=== PATIENT | male | born 1950 | race Caucasian/White ===

== ENCOUNTER 2019-01-28 09:50 | Emergency (ER) | payer MEDICARE, MEDICAID ==
[~2019-01-28 09:50] MED LIST: SULF1TAB12 PO
== END 2019-01-28 10:45 | disposition home or self-care (01) ==
LOC: MED 09:50
DX: K74.60 Unspecified cirrhosis of liver (principal); Z76.0 Encounter for issue of repeat prescription
CPT/HCPCS: 99283

== ENCOUNTER 2019-02-08 13:29 | Emergency (ER) | payer MEDICARE, MEDICAID ==
[~2019-02-08] VITALS: Ht 182.9 cm; Wt 116.1 kg
[2019-02-08 13:49] VITALS: BP 164/75
--- NOTE | 2019-02-08 13:52 | NUR ---
Patient ambulated to bed 3. RN evaluating patient at bedside.
--- NOTE | 2019-02-08 14:20 | NUR ---
68/M BIB SELF C/O INTERMITTENT NECK PAIN X 1 MONTH. DENIES TRAUMA. PATIENT STATES PAIN OF 10/10 AT THIS TIME.
[2019-02-08] MEDS ORDERED: ACETAMINOPHEN EXTRA STRENGTH 500 MG TAB PO ONE (15:05)
--- NOTE | 2019-02-08 15:06 | NUR ---
PT TAKEN TO CT VIA W/C, ACCOMPANIED BY QUALITY CONTROL AUDITOR.
[2019-02-08 16:01] VITALS: BP 136/69
--- NOTE | 2019-02-08 16:01 | NUR ---
Patient discharged with v/s stable. Written and verbal after care instructions given and explained. Patient alert, oriented and verbalized understanding of instructions. Ambulatory with steady gait. All questions addressed prior to discharge. ID band removed. Patient advised to follow up with PMD. Rx of ACETAMINOPHEN & NAPROSYN given. Patient educated on indication of medication including possible reaction and side effects. Opportunity to ask questions provided and answered.
== END 2019-02-08 16:01 | disposition home or self-care (01) ==
LOC: MED 13:29
DX: M47.892 Other spondylosis, cervical region (principal); R60.0 Localized edema; I10 Essential (primary) hypertension; F17.209 Nicotine dependence, unspecified, with unspecified nicotine-induced disorders; Z86.718 Personal history of other venous thrombosis and embolism; Z79.899 Other long term (current) drug therapy; Z71.6 Tobacco abuse counseling
CPT/HCPCS: 72125; 99284

== ENCOUNTER 2019-02-24 20:22 | Emergency (ER) | payer MEDICARE, MEDICAID ==
[~2019-02-24] VITALS: Ht 188 cm; Wt 113.4 kg
[2019-02-24 20:45] VITALS: BP 171/74
--- NOTE | 2019-02-24 21:20 | NUR ---
PATIENT REFUSING MY ASSESSMENT AT THIS TIME. NOT ANSWERING QUESTIONS
--- NOTE | 2019-02-24 21:30 | NUR ---
Dr. Macias examining patient.
--- NOTE | 2019-02-24 21:43 | NUR ---
EKG PERFORMED AT BEDSIDE
--- NOTE | 2019-02-24 21:55 | NUR ---
PATIENT REFUESING CARE AT THIS TIME. ELOPED FOR ER.
== END 2019-02-24 21:55 | disposition left against medical advice (07) ==
LOC: MED 20:22
DX: M25.562 Pain in left knee (principal); Z53.21 Procedure and treatment not carried out due to patient leaving prior to being seen by health care provider
CPT/HCPCS: 99283

== ENCOUNTER 2019-02-26 10:26 | Inpatient (IN) | payer MEDICARE, MEDICAID ==
[2019-02-26] VITALS (23 sets, daily range): BP systolic 84–143; BP diastolic 42–74
[~2019-02-26] VITALS: Ht 188 cm; Wt 113.4 kg
--- NOTE | 2019-02-26 10:26 | NUR ---
Patient BIBA ALS, transferred to bed 10. RN evaluating patient at bedside.
--- NOTE | 2019-02-26 10:33 | NUR ---
Dr. Anaya is evaluating the patient at bedside.
--- NOTE | 2019-02-26 10:49 | NUR ---
EMT AT BEDSIDE PERFORMING EKG.
--- NOTE | 2019-02-26 10:50 | NUR ---
68 Y/O M BIB AMBULANCE FOR BILATERAL LOWER LEG PAIN. PT STATES THE PAIN HAS BECOME WORSE X2 DAYS. LEGS ARE CLARK IN COLOR, EDEMA AND PAIN 7/10. PT STATES IT IS FROM BEING OUT IN THE COLD. NKA MEDHX: LIVER DISEASE
[2019-02-26] MEDS ORDERED: DILTIAZEM 25 MG/5 ML VIAL IVP ONE (11:00)
--- NOTE | 2019-02-26 11:02 | NUR ---
X-RAY AT BEDSIDE.
--- NOTE | 2019-02-26 11:05 | NUR ---
LAB AT BEDSIDE DRAWING ORDERED LAB WORK.
--- NOTE | 2019-02-26 11:16 | NUR ---
PT B/P IS 93/. DR ORDERED DILTIAZEM 2ML. WILL VERIFY WITH MD PRIOR TO GIVING MEDICATION.
[2019-02-26 11:19] LABS: BASOPHILS # (AUTO) 0.1 K/uL (0.00-0.22); EOSINOPHILS # (AUTO) 0.7 K/uL (0-0.4); EOSINOPHILS % (AUTO) 5.9 % (0.0-4.0); HEMOGLOBIN 11.7 g/dL (12.0-18.0); LYMPHOCYTES # (AUTO) 0.4 K/uL (2.0-11.5); LYMPHOCYTES % (AUTO) 3.5 % (20.5-51.1); MEAN CORPUSCULAR HEMOGLOBIN 27 pg (27-31); MEAN CORPUSCULAR HGB CONC 32 g/dL (33-37); MEAN CORPUSCULAR VOLUME 86.4 fL (80-94); MONOCYTES # (AUTO) 0.3 K/uL (0.8-1.0); MONOCYTES % (AUTO) 2.8 % (1.7-9.3); NEUTROPHILS # (AUTO) 10.7 K/uL (1.8-7.7); NEUTROPHILS % (AUTO) 86.8 % (42.2-75.2); PLATELET COUNT (AUTO) 88 K/uL (140-450); RED BLOOD CELL COUNT(AUTO) 4.28 MIL/uL (4.20-6.10); RED CELL DISTRIBUTION WIDTH 16.4 % (11.6-13.7); WHITE BLOOD COUNT (AUTO) 12.4 K/uL (4.8-10.8)
[2019-02-26 11:53] LABS: ALBUMIN 1.9 g/dL (3.4-5.0); CREATININE 3.1 mg/dL (0.7-1.3); TOTAL BILIRUBIN 3.6 mg/dL (0.0-1.0)
[2019-02-26 11:57] LABS: POTASSIUM 4.3 mmol/L (3.5-5.1)
--- NOTE | 2019-02-26 11:57 | NUR ---
CRITICAL LAB RECEIVED FROM EDELMIRA, BUN 80, REPORTED TO DR. SELBY
[2019-02-26 11:59] LABS: ANION GAP 19.3 (8-16)
[2019-02-26] MEDS ORDERED: FUROSEMIDE 40 MG/4 ML VIAL IVP ONE (12:05)
[2019-02-26] MEDS ORDERED: DILTIAZEM 125 MG in DEXTROSE 5% 100 ML IV ONE ×2 (12:10→12:55)
--- NOTE | 2019-02-26 12:35 | NUR ---
PT REFUSED ORDERED LASIX.
--- NOTE | 2019-02-26 12:37 | NUR ---
CALLED PHARMACY FOR ORDERED CARDIZEM IN 5% DEXTROSE.
--- NOTE | 2019-02-26 13:28 | NUR ---
Patient sitting at edge of bed, refusing help to use restroom. Pt provided with urinal. Pt provided with privacy.
--- NOTE | 2019-02-26 14:25 | NUR ---
RECEIVED PATIENT FROM ER VIA [facility], CONTINUITY OF CARE ENDORSED BY MARGO CORTES RN. PATIENT IS AAOX4, SKIN IS INTACT, PATIENT HAS DISCOLORATION TO LOWER EXTREMITIES. PATIENT HAD A PERIPHERAL IV SITE TO LAC, 22 GAUGE, THAT WAS OUT DURING TRANSFER. PATIENT IS ON ROOM AIR, ST ON MONITOR, DENIES PAIN. HOB IS SEMI MOYER, NO SIGNS OF DISTRESS NOTED. WILL CONTINUE TO MONITOR
--- NOTE | 2019-02-26 14:25 | NUR ---
Patient will be admitted to care of DR. BURRIS. Admited to ICU. Will go to room 5. Belongings list completed. Report to KRYSTIAN EDWARDS.
--- NOTE | 2019-02-26 15:28 | NUR ---
DR. BURRIS IS HERE TO SEE PATIENT, UPDATED ON PATIENT'S CONDITION.
[2019-02-26] MEDS ORDERED: IPRATROPIUM 0.02% 0.5 MG/2.5 ML NEBU INH PRN (15:40)
[2019-02-26] MEDS ORDERED: ALBUTEROL 0.083% 2.5 MG/3 ML NEBU INH PRN (15:40)
[2019-02-26] MEDS ORDERED: ALUMINUM HYD/MAG/SIMETHICONE 30 ML UDC PO PRN (15:40)
[2019-02-26] MEDS ORDERED: DOCUSATE SODIUM 250 MG GELCAP PO PRN (15:40)
[2019-02-26] MEDS ORDERED: POTASSIUM CHLORIDE 10 MEQ TABER PO PRN (15:40)
[2019-02-26] MEDS ORDERED: ACETAMINOPHEN 650 MG SUPP RC PRN (15:40)
[2019-02-26] MEDS ORDERED: guaiFENesin DM 200/20 MG-10 ML 10 ML UDC PO PRN (15:40)
[2019-02-26] MEDS ORDERED: MORPHINE SULFATE 2 MG/ML SYR IVP PRN (15:40)
[2019-02-26] MEDS ORDERED: BISACODYL 10 MG SUPP RC PRN (15:40)
[2019-02-26] MEDS ORDERED: diphenhydrAMINE 50 MG/ML VIAL IVP PRN (15:40)
[2019-02-26] MEDS ORDERED: ONDANSETRON 4 MG/2 ML VIAL IVP PRN (15:40)
[2019-02-26] MEDS ORDERED: MAG SULF 2000 MG/WATER PREMIX 50 ML IV PRN (15:40)
[2019-02-26] MEDS ORDERED: MAGNESIUM OXIDE 400 MG TAB PO PRN (15:40)
[2019-02-26] MEDS ORDERED: cloNIDine 0.1 MG TAB PO PRN (15:40)
[2019-02-26] MEDS ORDERED: ACETAMINOPHEN 325 MG TAB PO PRN (15:40)
[2019-02-26] MEDS ORDERED: HYDROcodone/APAP 5/325 MG 1 TAB TAB PO PRN (15:40)
[2019-02-26] MEDS ORDERED: SODIUM PHOSPHATE 118 ML ENEM RC PRN (15:40)
[2019-02-26] MEDS ORDERED: ZOLPIDEM 5 MG TAB PO PRN (15:40)
[2019-02-26] MEDS ORDERED: LORazepam 2 MG/ML VIAL IVP PRN (15:40)
--- NOTE | 2019-02-26 15:56 | NUR ---
DC PLANNING 68 YRS OLD MALE PATIENT WAS ADMITTED FROM HOME WITH A DX OF RAPID A-FIB ,ACUTE KIDNEY FAILURE. PT HAS A HX OF HTN, LIVER DISEASE AND CHRONIC INTERMITTENT BILATERAL LEG PAIN WITH SWELLING. EKG SHOWED ABNORMAL -A-FIB WITH VENTRICULAR RATE OF 148 CXR CARDIOMEGALY WITH MILD PULMONARY VASCULAR CONGESTION AT ER ADMINISTERED CARDIZEM IVP AND LASIX IVP.CONSULTED WITH TEACHERS' ASSISTANT LALA Fuentes AND HUMBERTO JACINTO TITLE CLERK AUTOMOBILE FOR RENAL FAILURE BUN/CREAT 80/3.1 FILEMAKER DEVELOPER WILL FOLLOW UP FOR HOMELESSNESS. CM TO FOLLOW. Addendum: 02/28/19 at 1146 by Payton Madden RECEIVED AN ORDER FOR SNF FOR REHAB AND TREATMENT. MET WITH THE PATIENT AT THE BEDSIDE TO DISCUSS DC PLAN AND IS AGREEABLE TO SNF PLACEMENT. CONTACTED [facility] AT [phone], MADE HER AWARE OF THE DC PLAN. SHE STATED TO GO AHEAD AND FAX THE ORDER AND PT NOTES TO [phone]. STILL AWAITING FOR PT NOTES. SHE PROVIDED ME WITH CONTRACTED FACILITIES: [facility], [facility], [facility], [facility], [place], [facility] AND [facility]. WILL SEND REFERRALS. Addendum: 02/28/19 at 1453 by Payton Madden CM RECEIVED AN ORDER FOR DC TO SNF FOR REHAB, WOUND CARE AND ROCEPHIN IV. MET WITH THE PATIENT AT THE BEDSIDE TO DISCUSS DC PLAN, PATIENT IS AGREEABLE. CONTACTED JAYDEN DENNISON OF [facility], SHE PROVIDED ME OF THE THEIR CONTRACTED SNF: [facility], [facility], [facility], [facility] AND [facility]. REFERRAL SENT TO THE LISTED FACILITIES. PER LILIAM OF [facility], UNABLE TO ACCEPT PATIENT. Addendum: 02/28/19 at 1730 by Payton Madden CM PER DANNY MARTINEZ, NO MALE BEDS AT THIS TIME. PER KALIA NO SNF BEDS AT THIS TIME. Addendum: 03/01/19 at 1135 by Payton Madden CM CONTACTED [facility] AT [phone], NO ANSWER. LEFT MESSAGE. CONTACTED [facility] AT [phone], ABLE TO SPEAK TO KALEB REGARDING REFERRAL. SHE STATED [facility] IS NOT ANSWERING, PROBABLY IN A MEETING. LEFT HER A MESSAGE TO RELAY TO ADMISSIONS. I ALSO PROVIDED HER OF MY CONTACT INFO. JAYDEN TO FOLLOW UP. Addendum: 03/01/19 at 1235 by Payton Madden CM CONTACTED [facility] AT [phone], ABLE TO SPEAK TO PROSPER. SHE SAID SHE WILL GO AHEAD AND TRANSFER ME TO THEIR ADMISSIONS JACKI LIGHT, NO ANSWER. LEFT MESSAGE. CONTACTED [facility] [phone], ABLE TO SPEAK TO [facility]. HE STATED HE WILL REVIEW THE CASE AND WILL GIVE ME A CALL BACK. Addendum: 03/01/19 at 1336 by Payton Madden CM MET WITH THE PATIENT AT THE BEDSIDE TO CONFIRM THE ADDRESS. HE CONFIRMED THE ADDRESS AND HE STATED THAT IT IS AN APARTMENT. HE ALSO STATED HE RECEIVED SSI $1000/MONTH. OLIVIA [facility] MADE AWARE. Addendum: 03/01/19 at 1337 by Payton Madden CM CONTACTED INOCENCIA MOREJON OF [facility] AT [phone], NO ANSWER. LEFT MESSAGE. RECEIVED A CALL FROM EJ AT [facility], HE STATED HE WILL BE COVERING JAYDEN DENNISON FOR THE DAY AND HIS PHONE NUMBER IS [phone] Addendum: 03/01/19 at 1622 by Payton Madden CM PER [facility] [phone], NO MALE BEDS AVAILABLE AT THIS TIME. Addendum: 03/01/19 at 1631 by Payton Madden CONTACTED [facility] AT [phone], INFORMED HIM THAT I DID NOT FIND PLACEMENT YET. HE PROVIDED ME WITH [facility] [phone] AND [facility] [phone]. Addendum: 03/02/19 at 6505 by Payton Madden CM CONTACTED [facility] AT [phone], ABLE TO SPEAK TO CHARLENEQUEENIE WANG REGARDING INQUIRY. SHE PROVIDED ME THE FAX NUMBER TO SEND REFERRAL [phone]. CONTACTED [facility] AT [phone], ABLE TO SPEAK TO FELICIA. HE STATED ADMISSIONS IS IN THE STAND UP MEETING AT THIS TIME AND WILL NOT GOING TO BE BACK UNTIL 929. HE PROVIDED ME WITH THE FAX NUMBER [phone] TO SEND THE REFERRAL. INQUIRY SENT TO BOTH FACILITIES. PER [facility], THEY ARE ABLE TO ACCEPT THE PATIENT CLINICALLY BUT NO MALE BEDS AVAILABLE AT THIS TIME. Addendum: 03/02/19 at 0909 by Payton Madden CM RECEIVED A CALL FROM PADMINI RODRIGUES FROM [facility], STATING THAT THEY ARE ABLE TO ACCEPT THE PATIENT TODAY PENDING INSURANCE AUTH. CONTACTED [facility] AT [phone], REGARDING PLACEMENT. SHE STATED SHE WILL CALL ME BACK FOR THE AUTH. Addendum: 03/02/19 at 1343 by Payton Madden CM RECEIVED A CALL FROM [facility] TO PROVIDE ME AUTH [id number] FOR [facility] AND TRANSPORT AUTH [id number] [facility]. PROVIDED PADMINI ADMISSION AT [facility] THE AUTH. SHE STATED PATIENT WILL GO TO ROOM [address] UNDER [address] WARD. [facility]ENN[facility] [phone], CRIME SCENE SPECIALIST WILL BE BETWEEN [phone]. PRIMARY KRYSTIAN CASE MADE AWARE.
--- NOTE | 2019-02-26 16:07 | NUR ---
DR. GRAVES IS HERE TO SEE AND EXAMINE PATIENT, UPDATED ON PATIENT'S CONDITION. WILL FOLLOW UP ON ANY ORDERS
[2019-02-26] MEDS: FUROSEMIDE 40 MG/4 ML VIAL IVP SCH (16:08)
[2019-02-26] MEDS: METOPROLOL 25 MG TAB PO SCH ×2 (16:08→22:16)
[2019-02-26] MEDS ORDERED: METOLAZONE 5 MG TAB PO SCH (16:30)
--- NOTE | 2019-02-26 19:30 | NUR ---
RECEIVED PT AWAKE, A/0 X 4. C/O PAIN @ 10/10 TO BACK. RESPIRATIONS EVEN AND UNLABORED, NO SOB, RA. LUNGS CLEAR THROUGHOUT. BOWEL SOUNDS ACTIVE X4. NO ABDOMINAL DISTENTION OR TENDERNESS UPON PALPATION. ABLE TO USE URINAL INDEPENDENTLY. DOUBLE LUMEN PERIPHERAL IV NOTED TO RT AC, INFUSING CARDIZEM 10 ML/HR, TKO WITH NS. PATENT AND NON-INFILTRATED. RED, SCALY SKIN WITH +2 PITTING EDEMA BILATERALLY TO LOWER EXTREMITIES. THICK, YELLOW, UNKEPT TOENAILS NOTED. BED LOW AND LOCKED. CALL LIGHT LEFT WITHIN REACH. WILL FOLLOW UP WITH PAIN MEDS REQUESTED.
[2019-02-26] MEDS: HYDROcodone/APAP 5/325 MG 1 TAB TAB PO PRN (19:35)
--- NOTE | 2019-02-26 20:00 | NUR ---
HR REMAIN BETWEEN 120-130. CARDIZEM INCREASED FROM 10ML/HR TO 15ML/HR. BP 102/69. WILL CONTINUE TO MONITOR.
--- NOTE | 2019-02-26 20:45 | NUR ---
BP DECREASED TO 86/57. HR ST @ [address] REEVES MADE AWARE. NEW ORDERS FOR DIGOXIN 0.5 MG IVP. ADMINISTERED WITHOUT INCIDENT. WILL CONTINUE TO MONITOR. WILL BE IN TO SEE FRANKLIN CHI.
[2019-02-26] MEDS ORDERED: DIGOXIN 0.25 MG/ML AMP IV ONE (20:54)
[2019-02-26] MEDS ORDERED: DIGOXIN 0.25 MG/ML AMP IV SCH (21:30)
--- NOTE | 2019-02-26 22:30 | NUR ---
DR REEVES AT BEDSIDE AT THIS TIME. UPDATED ON PT CONDITION AND TRENDS.
[2019-02-26] MEDS ORDERED: AMIODARONE 150 MG in DEXTROSE 5% 100 ML IV ONE (22:35)
[2019-02-26] MEDS ORDERED: AMIODARONE 450 MG in DEXTROSE 5% 250 ML IV SCH (22:35)
[2019-02-26] MEDS ORDERED: DILTIAZEM 125 MG in DEXTROSE 5% 100 ML IV SCH (22:40)
[2019-02-26] MEDS ORDERED: AMIODARONE 150 MG/3 ML VIAL IV ONE (23:00)
--- NOTE | 2019-02-26 23:00 | NUR ---
NEW ORDERS FOR AMIODARONE BOLUS 150MG ADMINISTERED ORDERED. PT REMAINS ASYMPTOMATIC, HR @ 128. WILL START AMIODARONE DRIP AT THIS TIME.
[2019-02-26] MEDS ORDERED: AMIODARONE 450 MG/9 ML VIAL IV ONE (23:02)
[2019-02-27] VITALS (30 sets, daily range): BP systolic 85–130; BP diastolic 41–88
--- NOTE | 2019-02-27 | NUR ---
HR @ 64 BPM. CARDIZEM STOPPED. CONTINUES ON AMIODARONE. SAFETY PRECAUTIONS REMAIN IN PLACE. BED LOW AND LOCKED. CALL LIGHT WITHIN REACH. WILL CONTINUE TO MONITOR FOR CHANGES IN CONDITION.
--- NOTE | 2019-02-27 02:00 | NUR ---
VSS. DENIES PAIN UPON QUESTIONING. REPOSITIONED WITH PRESSURE AREAS OFFLOADED. SAFETY PRECAUTIONS REMAIN IN PLACE. CALL LIGHT LEFT WITHIN REACH. WILL CONTINUE TO MONITOR FOR CHANGES.
[2019-02-27 05:16] LABS: HEMATOCRIT 33.5 % (36-52); HEMOGLOBIN 10.7 g/dL (12.0-18.0); MEAN CORPUSCULAR HEMOGLOBIN 28 pg (27-31); MEAN CORPUSCULAR HGB CONC 32 g/dL (33-37); MEAN CORPUSCULAR VOLUME 86.5 fL (80-94); PLATELET COUNT (AUTO) 97 K/uL (140-450); RED BLOOD CELL COUNT(AUTO) 3.88 MIL/uL (4.20-6.10); RED CELL DISTRIBUTION WIDTH 15.8 % (11.6-13.7); WHITE BLOOD COUNT (AUTO) 13.3 K/uL (4.8-10.8)
--- NOTE | 2019-02-27 05:23 | NUR ---
PAGED DR REEVES. AMIODARONE D/C AT THIS TIME D/T SINUS SILVIA, HR 55-56. INFORMED THAT CARDIZEM DRIP HAS BEEN OFF SINCE 22 D/T HR @ 62-63. NEW ORDER TO START CARDIZEM PO. WILL ENDORSE TO ONCOMING SHIFT.
[2019-02-27 05:49] LABS: ANION GAP 15.3 (8-16); CARBON DIOXIDE 23.6 mmol/L (21-32); CREATININE 3.5 mg/dL (0.7-1.3); POTASSIUM 4.9 mmol/L (3.5-5.1)
[2019-02-27] MEDS: DILTIAZEM 60 MG TAB PO SCH ×3 (06:00→18:00)
[2019-02-27 06:48] LABS: BASOPHILS % (MANUAL) 0 % (0-2); EOSINOPHILS % (MANUAL) 1 % (0-4); LYMPHOCYTES % (MANUAL) 5 % (20-46); MONOCYTES % (MANUAL) 4 % (5-12)
--- NOTE | 2019-02-27 07:15 | NUR ---
ENDORSED PT TO DAYSHIFT FOR CONTINUITY OF CARE.
--- NOTE | 2019-02-27 07:30 | NUR ---
BEDSIDE REPORT RECEIVED FROM SIGNAL INTEGRITY ENGINEER NURSE GINGER, PT AWAKE, ALERT, OX4, SPEAKS WITH MUMBLE, RESP EVEN UNLABORED ON RA, SKIN WARM DRY COLOR WNL, ON CURTAIN HEMMER AUTOMATIC, SINUS BRADYCARDIA, BILAT LOWER EXT WITH SEVER EDEMA, DRY THICK SKIN WITH DISCOLORATION, PT MOVES ALL EXT, POC REVIEWED, ALL SAFETY MEASURES IN PLACE, WILL CONTINUE TO MONITOR.
--- NOTE | 2019-02-27 07:50 | NUR ---
INCONTINENT OF STOOL X1, PERICARE DONE, BED BATH GIVEN, LINEN AND GOWN CHANGED, SLIGHT REDNESS NOTED ON PERIANAL/BUTTOCKS AREA, WILL NOTIFY MD.
--- NOTE | 2019-02-27 08:20 | NUR ---
PT SITTING UP EATING BREAKFAST ON HIS OWN, SWALLOWS WITHOUT PROBLEM.
[2019-02-27] MEDS: METOPROLOL 25 MG TAB PO SCH ×2 (08:36→20:55)
[2019-02-27] MEDS: FUROSEMIDE 40 MG/4 ML VIAL IVP SCH (08:36)
--- NOTE | 2019-02-27 08:55 | NUR ---
PT PLACED ON BEDPAN PER PT REQUEST.
[2019-02-27] MEDS ORDERED: METOLAZONE 5 MG TAB PO SCH ×2 (09:00→12:00)
--- NOTE | 2019-02-27 09:20 | NUR ---
DR BURRIS AT BEDSIDE FOR EVAL, DOWN GRADED TO TELE STATUS.
--- NOTE | 2019-02-27 09:50 | NUR ---
R AC IV OCCLUDED, DC'D, CATH TIP INTACT, BLEEDING CONTROLLED, NEW IV 20G TO LEFT WRIST PLACED BY [facility] STUDENT WITH HER INSTRUCTOR FRANKLIN RUSHING WELL.
--- NOTE | 2019-02-27 10:05 | NUR ---
PT PLACED BACK ON BEDPAN PER PT REQUEST.
--- NOTE | 2019-02-27 10:15 | NUR ---
LOOSE BROWN STOOL X1.
[2019-02-27] MEDS ORDERED: FUROSEMIDE 100 MG/10 ML VIAL IVP SCH ×2 (12:00→17:00)
--- NOTE | 2019-02-27 12:40 | NUR ---
PT SITTING UP EATING LUNCH, RESP EVEN UNLABORED, VITAL STABLE ON MONITOR.
--- NOTE | 2019-02-27 13:45 | NUR ---
LOOSE STOOL IN BEDPAN, PERICARE DONE, PADS CHANGED, PT POSITIONED FOR COMFORT, NO IMMEDIATE NEEDS VOICED AT THIS TIME, WILL CONTINUE TO MONITOR.
[2019-02-27] MEDS: HYDROcodone/APAP 5/325 MG 1 TAB TAB PO PRN (15:44)
--- NOTE | 2019-02-27 15:44 | NUR ---
PT C/O BILAT LOWER EXT 10/10, NORCO GIVEN PER ORDER.
[2019-02-27] MEDS: HYDRAGUARD CREAM TP SCH (15:45)
--- NOTE | 2019-02-27 17:00 | NUR ---
INCONTINENT OF STOOL, PERICARE DONE, REDNESS AROUND PERINEUM/PERIRECTAL/BILAT INNER THIGHS NOTED, PHOTO TAKEN, Z GUARD APPLIED.
[2019-02-27] MEDS ORDERED: Z-GUARD PASTE TP ONE (17:12)
[2019-02-27] MEDS: Z-GUARD PASTE TP SCH (18:00)
--- NOTE | 2019-02-27 19:17 | NUR ---
BEDSIDE REPORT GIVEN TO BEAM RACKER NURSE GINGER. PT IN STABLE CONDITION.
--- NOTE | 2019-02-27 19:30 | NUR ---
RECEIVED PT RESTING IN BED, EASILY AROUSABLE. VSS. A/0 X 4. DENIES PAIN @ THIS TIME. RESPIRATIONS EVEN AND UNLABORED, NO SOB, RA. LUNGS CLEAR THROUGHOUT. BOWEL SOUNDS ACTIVE X4. NO ABDOMINAL DISTENTION OR TENDERNESS UPON PALPATION. ABLE TO USE URINAL INDEPENDENTLY. SCROTAL EDEMA NOTED. DOUBLE LUMEN PERIPHERAL IV NOTED TO LT AC, TKO WITH NS. PATENT AND NON-INFILTRATED. RED, SCALY SKIN WITH +2 PITTING EDEMA BILATERALLY TO LOWER EXTREMITIES. BED LOW AND LOCKED. CALL LIGHT LEFT WITHIN REACH. WILL CONTINUE TO MONITOR.
--- NOTE | 2019-02-27 20:56 | NUR ---
HELD 2100 LOPRESSOR. HR 55 BPM. ASYMPTOMATIC. WILL CONTINUE TO MONITOR
--- NOTE | 2019-02-27 21:09 | NUR ---
RECEIVED PATIENT ON ROOM AIR, PULSE OX SAT 95%. NO SOB NOTED. PRN HHN NOT INDICATED. NO ACUTE RESPIRATORY DISTRESS NOTED AT THIS TIME. WILL CONTINUE TO MONITOR.
[2019-02-28] VITALS: BP 101/54
--- NOTE | 2019-02-28 00:19 | NUR ---
HELD 0000 CARDIZEM. HR @ 58 BPM. ASYMPTOMATIC. SAFETY PRECAUTIONS REMAIN IN PLACE. CALL LIGHT WITHIN REACH. WILL CONTINUE TO MONITOR FOR CHANGES.
[2019-02-28] MEDS: HYDRAGUARD CREAM TP SCH ×2 (01:25→12:57)
--- NOTE | 2019-02-28 02:00 | NUR ---
ORAL CARE PROVIDED. REPOSITIONED WITH PRESSURE AREAS OFFLOADED. PERICARE PROVIDED. SAFETY PRECAUTIONS REMAIN IN PLACE. BED LOW AND LOCKED. CALL LIGHT LEFT WITHIN REACH. WILL CONTINUE TO MONITOR.
[2019-02-28 04:00] VITALS: BP 107/52
--- NOTE | 2019-02-28 04:00 | NUR ---
VSS. REPOSITIONED PT. PERICARE PROVIDED. PICTURES OF WOUNDS OBTAINED. SAFETY PRECAUTIONS REMAIN IN PLACE. BED LOW AND LOCKED. CALL LIGHT WITHIN REACH. WILL CONTINUE TO MONITOR FOR CHANGES.
[2019-02-28] MEDS: DILTIAZEM 60 MG TAB PO SCH ×4 (06:00→17:53)
[2019-02-28 06:31] LABS: BASOPHILS % (AUTO) 0.2 % (0.0-2.0); EOSINOPHILS # (AUTO) 0.2 K/uL (0-0.4); EOSINOPHILS % (AUTO) 1.7 % (0.0-4.0); HEMATOCRIT 32.4 % (36-52); HEMOGLOBIN 10.5 g/dL (12.0-18.0); LYMPHOCYTES # (AUTO) 0.8 K/uL (2.0-11.5); LYMPHOCYTES % (AUTO) 7.3 % (20.5-51.1); MEAN CORPUSCULAR HEMOGLOBIN 28 pg (27-31); MEAN CORPUSCULAR HGB CONC 32 g/dL (33-37); MEAN CORPUSCULAR VOLUME 85.5 fL (80-94); MONOCYTES # (AUTO) 0.5 K/uL (0.8-1.0); MONOCYTES % (AUTO) 4.3 % (1.7-9.3); NEUTROPHILS # (AUTO) 9.9 K/uL (1.8-7.7); NEUTROPHILS % (AUTO) 86.5 % (42.2-75.2); PLATELET COUNT (AUTO) 97 K/uL (140-450); RED BLOOD CELL COUNT(AUTO) 3.79 MIL/uL (4.20-6.10); RED CELL DISTRIBUTION WIDTH 15.5 % (11.6-13.7); WHITE BLOOD COUNT (AUTO) 11.4 K/uL (4.8-10.8)
[2019-02-28 06:35] LABS: ANION GAP 16.5 (8-16); CARBON DIOXIDE 22.2 mmol/L (21-32); CREATININE 3.7 mg/dL (0.7-1.3); POTASSIUM 3.7 mmol/L (3.5-5.1)
--- NOTE | 2019-02-28 06:45 | NUR ---
PER CHARGE NURSE YONI ON MST, STATES SHE TOOK MESSAGE OF CRITICAL VALUES FOR 105 A FROM LAB, STATES BUN 106 CREATININE 3.7 CA 7.6 ATTEMPTED TO GET A HOLD OF X2 AT 0652 AND 0705 NO RESPONSE. ENDORSED TO DAY SHIFT MST NURSE TAKING PATIENT AT THIS TIME TO ENDORSE TO MD. PT STABLE AT THIS TIME. NO SOB OR DISTRESS NOTED. PATIENT LYING IN BED RESTING WITH EYES CLOSED.
--- NOTE | 2019-02-28 07:10 | NUR ---
RECEIVED BEDSIDE REPORT FROM KRYSTIAN DICK. PATIENT TRANSFERRED FROM ICU TO [facility] @ 0672. PATIENT IS ASLEEP, EASILY AROUSABLE. RESPIRATIONS EVEN AND UNLABORED. IV INTACT AND PATENT TO LEFT FOREARM. PLANS OF CARE DISCUSSED. BED IN LOW POSITION. SAFETY MEASURES IN PLACE. CALL LIGHT WITHIN REACH.
[2019-02-28 08:00] VITALS: BP 126/53
--- NOTE | 2019-02-28 08:00 | NUR ---
PER HOUSEKEEPING COORDINATOR NURSE REPORT SHE RECEIVED CRITICAL VALUE BUN ELEVATED 106 AND CR 3.[address] @ 0652 AND 0705, PER NIGHT NURSE SHE DID NOT RECEIVE A RESPONSE. PAGED CASKET ASSEMBLER METAL @ 0800 TO REPORT CRITICAL VALUE. AWAITING FOR CALL BACK.
--- NOTE | 2019-02-28 08:12 | NUR ---
PATIENT HAS BEEN SCREENED AND CATEGORIZED MODERATE NUTRITION RISK. PATIENT WILL BE SEEN WITHIN 3-5 DAYS OF ADMISSION. 03/01/19 03/03/[address]
--- NOTE | 2019-02-28 08:26 | NUR ---
RECEIVED CALL BACK FROM DR. GRAVES. RECEIVED ORDER TO DECREASE IVP LASIX 80MG TO BID AND STOP METOLAZONE. ORDERS NOTED.
[2019-02-28] MEDS: METOPROLOL 25 MG TAB PO SCH ×2 (09:00→20:52)
[2019-02-28] MEDS ORDERED: METOLAZONE 5 MG TAB PO SCH (09:00)
[2019-02-28] MEDS ORDERED: FUROSEMIDE 100 MG/10 ML VIAL IVP SCH (09:00)
[2019-02-28] MEDS: ECOTRIN 81 MG TABEC PO SCH (09:24)
--- NOTE | 2019-02-28 09:35 | NUR ---
DR. BURRIS AT BEDSIDE. DISCHARGED PLAN DISCUSSED.
[2019-02-28] MEDS: ENOXAPARIN 30 MG/0.3 ML SYR SUBQ SCH (09:46)
--- NOTE | 2019-02-28 09:50 | NUR ---
AM MEDICATIONS GIVEN. PATIENT IS AWAKE AND VERBALLY RESPONSIVE. RESPIRATIONS EVEN AND UNLABORED. BILATERAL LOWER EXTREMITIES STILL WITH EDEMA. IV ANTIBIOTIC CONTINUED. BED IN LOW POSITION. BED ALARM ON. SAFETY PRECAUTIONS IN PLACE. CALL LIGHT WITHIN REACH.
--- NOTE | 2019-02-28 10:46 | NUR ---
Dye Colorist Formulator Note: Patient is a 68-year-old male admitted for rapid A-fib and acute kidney failure. Patient has unknown PMHX and was admitted from home. SW met with patient at bedside to verify demographics. Patient refused to complete assessment. SW will follow up as needed.
[2019-02-28 12:00] VITALS: BP 108/38
--- NOTE | 2019-02-28 12:45 | NUR ---
PATIENT WITH HOB ELEVATED EATING LUNCH. NO S/S OF DISTRESS NOTED. IV INTACT AND PATENT TO LEFT FOREARM. CALL LIGHT WITHIN REACH.
[2019-02-28] MEDS: Z-GUARD PASTE TP SCH (12:57)
[2019-02-28] MEDS: NON ADHERENT DRESSING TP SCH (13:00)
--- NOTE | 2019-02-28 14:04 | NUR ---
WOUND CARE EVALUATION NOTE: REASON FOR EVALUATION: BLE CELLULITIS WOUND SKIN ASSESSMENT DONE WITH THIS 68 Y/O MALE PT ADMITTED TO [facility] WITH INITIAL DX OF BLE CELLULITIS. PAST MEDICAL HX UN-KNOW. ALL ABOVE INFORMATION OBTAINED FROM ADMISSION H&P. PT IS AWAKE. SKIN IS WARM AND DRY, POOR PERSONAL HYGIENE OBSERVED. BLE NO HAIR GROWTH, +4 EDEMA TO BILATERAL LOWER LEGS. BILATERAL DORSAL PEDAL PULSES PRESENT AND DIMINISHES, THICKEN FUNGAL NAILS OBSERVED. INTEGUMENTARY: -XEROSIS TO BUE, BILATERAL THIGHS -INCONTINENT ASSOCIATED DERMATITIS TO GROINS, SCROTAL AREA AND BUTTOCKS, SKIN RED AND INTACT -BLE STASIS ULCERS, WEEPING SKIN, +4 EDEMA, MOIST, NO ODOR, ERYTHEMA, PAIN 0/10 -LEFT AND RIGHT HEELS THICK CALLUS RECOMMENDATIONS: -ULTRASOUNDS TO BILATERAL LOWER EXTREMITIES -APPLY HYDRAGUARD TO BUE AND THIGHS BID AND ONEYDA -CLEANSE WITH SOAP AND WATER, PAT DRY, APPLY Z-GUARD TO GROINS, SCROTAL AREA AND BUTTOCKS BID AND PRN IF SOILING -CLEANSE RIGHT HEEL WITH NS AND GAUZE, PAT DRY, WRAP WITH XEROFORM DRESSING, AND WRAP WITH KANE Q M-W-F AND PRN WITH SOILING. -APPLY HEEL RAISER TO RIGHT HEEL AT ALL TIMES -OFFLOAD BILATERAL HEELS BY PLACING PILLOWS UNDER CALVES UNLESS OTHERWISE CONTRAINDICATED -PRESSURE REDISTRIBUTION SURFACE THERAPY -TURN AND REPOSITION Q2H, OFFLOAD SACRALCOCCYX BY TURNING RIGHT AND LEFT -CONTINUE TO FOLLOW RD RECOMMENDATIONS ALL ABOVE RECOMMENDATIONS DISCUSSED WITH PRIMARY RN WILL FOLLOW UP PT Q7-10 DAYS. PLEASE CONTACT WOUND CARE NURSE FOR ANY QUESTION AND CHANGE OF WOUND CONDITION. Addendum: 02/28/19 at 1415 by Napoleon Power (Grace) RN CORRECTION: -CLEANSE BLE WITH NS AND GAUZE, PAT DRY, WRAP WITH XEROFORM DRESSING, AND WRAP WITH KANE Q M-W-F AND PRN WITH SOILING.
--- NOTE | 2019-02-28 15:00 | NUR ---
PATIENT IN BED, ASLEEP, EASILY AROUSABLE. RESPIRATIONS EVEN AND UNLABORED. NO S/S OF DISTRESS NOTED. CALL LIGHT WITHIN REACH. SAFETY MEASURES IN PLACE.
--- NOTE | 2019-02-28 15:12 | NUR ---
WOUND CARE RECOMMENDATIONS DISCUSSED WITH PRIMARY RN.
[2019-02-28 16:00] VITALS: BP 118/52
--- NOTE | 2019-02-28 17:00 | NUR ---
PATIENT AAOX4. PATIENT CLEANED AND REPOSITIONED FOR COMFORT. NO S/S OF DISTRESS NOTED.
--- NOTE | 2019-02-28 18:45 | NUR ---
PATIENT EATING DINNER. NO S/S OF DISTRESS NOTED. PATIENT IN STABLE CONDITION WILL ENDORSE TO NIGHT NURSE.
--- NOTE | 2019-02-28 19:15 | NUR ---
RECEIVED BEDSIDE REPORT FROM AM SHIFT NURSE RN. PATIENT IS ASLEEP, EASILY AROUSABLE. RESPIRATIONS EVEN AND UNLABORED. IV INTACT AND PATENT TO LEFT FOREARM G 20, TKO PLANS OF CARE DISCUSSED. BED IN LOW POSITION. SAFETY/FALL RISK MEASURES IN PLACE. CALL LIGHT WITHIN REACH.
[2019-02-28 20:00] VITALS: BP 120/46
--- NOTE | 2019-02-28 22:26 | NUR ---
PT SLEEPING, BUT EASILY AROUSABLE; PT RESPONDS TO QUESTIONS CLEARLY. WITH CHF. PATIENT MAINTAINED IN SEMI FOWLERS TO PREVENT ASPIRATION.
[2019-03-01] VITALS: BP 111/48
[2019-03-01] MEDS: DILTIAZEM 60 MG TAB PO SCH ×6 (00:11→17:55)
[2019-03-01] MEDS: HYDRAGUARD CREAM TP SCH ×2 (00:24→13:08)
--- NOTE | 2019-03-01 00:38 | NUR ---
NON-ADMINISTERED GABINO SPB 111/ 43' BUT HR IS 68 (HOLD FOR HR LESS THAN 70 ORDERED ) Addendum: 03/01/19 at 0039 by Rozina Gracia RN SBP
--- NOTE | 2019-03-01 00:38 | NUR ---
PO MED. CARDINGHIAM WASTED HR IS 68
[2019-03-01] MEDS: Z-GUARD PASTE TP SCH ×2 (01:13→13:08)
[2019-03-01 04:00] VITALS: BP 122/50
--- NOTE | 2019-03-01 05:43 | NUR ---
HOLD CARDIZEM HR IS 64, PATIENT'S BP 122/50
[2019-03-01] MEDS: HYDROcodone/APAP 5/325 MG 1 TAB TAB PO PRN (06:26)
--- NOTE | 2019-03-01 06:26 | NUR ---
PT SAID HIS FEET HURTS 08/02, GIVEN PEÑA ORDERED Addendum: 03/01/19 at 0644 by Rozina Gracia RN BILATERAL LEGS
--- NOTE | 2019-03-01 07:15 | NUR ---
RECEIVED BEDSIDE REPORT FROM NIGHTSHIFT NURSE. PT RESTING IN BED. ABLE TO MAKE NEEDS KNOWN. RESPIRATIONS EVEN AND UNLABORED WITH NO SOB OR RESPIRATORY DISTRESS. IV SITE IN LEFT FA 20 G IS CLEAN, DRY, AND INTACT. SKIN WARM AND DRY TO TOUCH. SAFETY MEASURES IN PLACE. WILL CONTINUE TO MONITOR.
[2019-03-01 08:00] VITALS: BP 106/55
[2019-03-01] MEDS ORDERED: FUROSEMIDE 100 MG/10 ML VIAL IVP SCH (09:00)
[2019-03-01] MEDS: ENOXAPARIN 30 MG/0.3 ML SYR SUBQ SCH (09:00)
[2019-03-01] MEDS: METOPROLOL 25 MG TAB PO SCH ×2 (09:00→21:00)
[2019-03-01] MEDS: ECOTRIN 81 MG TABEC PO SCH (09:15)
--- NOTE | 2019-03-01 09:15 | NUR ---
ADMINISTERED MEDICATION PRESCRIBED PER MD ORDER. PT TOLERATED WELL. MEDICATION EDUCATION PERFORMED. PT VERBALIZED UNDERSTANDING AND COULD TEACH BACK. SAFETY MEASURES IN PLACE.
[2019-03-01 09:33] LABS: ALBUMIN 1.5 g/dL (3.4-5.0); ANION GAP 14.8 (8-16); CARBON DIOXIDE 25.6 mmol/L (21-32); CREATININE 3.4 mg/dL (0.7-1.3); POTASSIUM 3.4 mmol/L (3.5-5.1); TOTAL BILIRUBIN 1.6 mg/dL (0.0-1.0)
--- NOTE | 2019-03-01 10:23 | NUR ---
RECEIVED CALL FROM CHEMISTRY SAYING PT HAS CRITICAL LAB VALUE. BUN IS 114. NOTIFIED DR. BURRIS AT 1027. AWARE AND GAVE NO NEW ORDERS.
[2019-03-01 10:55] LABS: PHOSPHORUS 5.5 mg/dL (2.5-4.9)
[2019-03-01 12:00] VITALS: BP 132/79
--- NOTE | 2019-03-01 13:09 | NUR ---
ADMINISTERED SCHEDULE MEDICATION PRESCRIBED PER MD ORDER. HELD DILTIAZEM DUE TO HEART RATE BEING 64. PT TOLERATED WELL. SAFETY MEASURES IN PLACE. WILL CONTINUE TO MONITOR.
--- NOTE | 2019-03-01 14:30 | NUR ---
HOURLY ROUNDING. PT RESTING IN BED UPON ARRIVAL. ABLE TO MAKE NEEDS KNOWN. RESPIRATIONS EVEN AND UNLABORED WITH NO SOB OR RESPIRATORY DISTRESS. SKIN WARM AND DRY TO TOUCH. SAFETY MEASURES IN PLACE. WILL CONTINUE TO MONITOR.
--- NOTE | 2019-03-01 15:43 | NUR ---
HOURLY ROUNDING. PT ASLEEP IN BED WITH FAMILY AT BEDSIDE. RESPONSIVE TO VERBAL AND TACTILE STIMULI. ABLE TO MAKE NEEDS KNOWN. RESPIRATIONS EVEN AND UNLABORED WITH NO SOB OR RESPIRATORY DISTRESS. SKIN WARM AND DRY TO TOUCH. SAFETY MEASURES IN PLACE. WILL CONTINUE TO MONITOR.
[2019-03-01 16:00] VITALS: BP 102/64
--- NOTE | 2019-03-01 16:30 | NUR ---
PT LYING IN BED UPON ARRIVAL. PT IV PUMP IS BEEPING. PT PULLED OUT INTACT IV CANNULA. WHEN ASKING PT ABOUT WHAT HAPPENED, PT STATED, "I DON'T KNOW WHAT HAPPENED." INSTRUCTED PT IMPORTANCE OF KEEPING IV SITE IN PLACE. PT VERBALIZED UNDERSTANDING. WILL PLACE NEW INTACT IV CANNULA
--- NOTE | 2019-03-01 16:45 | NUR ---
NEW IV INSERTED. LEFT FA 22G. CLEAN, DRY, AND INTACT. PT TOLERATING WELL. REMINDED PT NOT TO REMOVE INTACT IV CANNULA. PT VERBALIZED RESPONSE. SAFETY MEASURES IN PLACE. WILL CONTINUE TO MONITOR
--- NOTE | 2019-03-01 17:24 | NUR ---
ADMINISTERED MEDICATION PRESCRIBED PER MD ORDER. PT TOLERATED WELL. MEDICATION EDUCATION PERFORMED. PT VERBALIZED UNDERSTANDING. SAFETY MEASURES IN PLACE
--- NOTE | 2019-03-01 17:56 | NUR ---
DILTIAZEM HELD DUE TO HEART RATE BEING 64. SAFETY MEASURES IN PLACE
--- NOTE | 2019-03-01 19:05 | NUR ---
ENDORSED TO NIGHTSHIFT NURSE. PT RESTING IN BED. ABLE TO MAKE NEEDS KNOWN. RESPIRATIONS EVEN AND UNLABORED WITH NO SOB OR RESPIRATORY DISTRESS. SKIN WARM AND DRY TO TOUCH. SAFETY MEASURES IN PLACE. PT IS STABLE
[2019-03-01 19:55] LABS: MAGNESIUM 2.2 mg/dL (1.8-2.4)
--- NOTE | 2019-03-01 19:55 | NUR ---
RECEIVED PT, AWAKE O X 3.PT BEDBOUND. PT FACIAL GRIMACING NOTED AND VERBALIZED THAT HE IS IN LOT OF PAIIN 10/10 ON HIS BILATERAL LEGS AND ON HIS HIPS . HE SAID HE WANTS HIGHER DOSE OF PAIN MEDS. WILL GIVE MOPRHINE. WILL REASSESS PAIN LATER; WITH IV ON THE L FA G 22. WILL MONITOR PT
[2019-03-01 20:00] VITALS: BP 106/40
--- NOTE | 2019-03-01 20:15 | NUR ---
PT CLEANED AND TURNED, BECAUSE HE SAID HE HAS PAIN IN THE HIPS, REPOSITIONED, PLACED PILLOWS. PT MORE COMFORTABLE. BUT SAID PAIN IS MORE ON HIS KIDNEYS. HAD A NEPHRO CONSULT EARLIER
--- NOTE | 2019-03-01 21:35 | NUR ---
LOPRESSOR NOT GIVEN BP IS 106/40 HR 68, WILL ,INFORM DR. BURRIS
[2019-03-02] VITALS (8 sets, daily range): BP systolic 99–143; BP diastolic 45–108
--- NOTE | 2019-03-02 | NUR ---
CARDIZEM NOT GIVEN BECAUSE BP IS 99/45 (HOLD FOR SBP LESS THAN 100) HR 72
[2019-03-02] MEDS: HYDRAGUARD CREAM TP SCH ×2 (01:15→13:30)
[2019-03-02] MEDS: Z-GUARD PASTE TP SCH ×2 (01:15→13:30)
[2019-03-02] MEDS: DILTIAZEM 60 MG TAB PO SCH ×3 (05:57→11:41)
--- NOTE | 2019-03-02 07:20 | NUR ---
RECEIVED BEDSIDE REPORT FROM NIGHTSHIFT NURSE. PT RESTING IN BED UPON ARRIVAL. ABLE TO MAKE NEEDS KNOWN. RESPIRATIONS EVEN AND UNLABORED WITH NO SOB OR RESPIRATORY DISTRESS. SKIN WARM AND DRY TO TOUCH. SAFETY MEASURES IN PLACE. WILL CONTINUE TO MONITOR
[2019-03-02] MEDS: ECOTRIN 81 MG TABEC PO SCH (08:52)
--- NOTE | 2019-03-02 08:52 | NUR ---
ADMINISTERED MEDICATION PRESCRIBED PER MD ORDER. ENOXAPARIN HELD DUE TO PLATELET BEING 97 AND METOPROLOL HELD DUE TO BP BEING 108/45 AND HEART RATE IS 64. SAFETY MEASURES IN PLACE. WILL CONTINUE TO MONITOR
[2019-03-02] MEDS: ENOXAPARIN 30 MG/0.3 ML SYR SUBQ SCH (09:00)
[2019-03-02] MEDS ORDERED: FUROSEMIDE 40 MG TAB PO SCH (09:00)
[2019-03-02] MEDS: METOPROLOL 25 MG TAB PO SCH (09:00)
[2019-03-02] MEDS: NON ADHERENT DRESSING TP SCH (09:09)
--- NOTE | 2019-03-02 10:15 | NUR ---
PT RESTING IN BED. ABLE TO MAKE NEEDS KNOWN. RESPIRATIONS EVEN AND UNLABORED WITH NO SOB OR RESPIRATORY DISTRESS. SKIN WARM AND DRY TO TOUCH. IV SITE IN LEFT FA 22G IS CLEAN, DRY, AND INTACT. SAFETY MEASURES IN PLACE. WILL CONTINUE TO MONITOR.
--- NOTE | 2019-03-02 11:42 | NUR ---
HELD DILTIAZEM DUE TO THE HEART RATE BEING 67. SAFETY MEASURES IN PLACE. WILL CONTINUE TO MONITOR
[2019-03-02] MEDS: HYDROcodone/APAP 5/325 MG 1 TAB TAB PO PRN (12:37)
--- NOTE | 2019-03-02 12:37 | NUR ---
PT CALLED AND COMPLAINED OF PAIN. PRN PAIN MEDICATION ADMINISTERED PRESCRIBED PER MD ORDER. PT TOLERATED WELL. MEDICATION EDUCATION PERFORMED. PT VERBALIZED UNDERSTANDING. SAFETY MEASURES IN PLACE. WILL CONTINUE TO MONITOR.
--- NOTE | 2019-03-02 13:28 | NUR ---
RECEIVED CALL FROM GREIGE MENDER SAYING THAT PT WILL BE TRANSFERR[facility] TO [facility] IN ROOM 47A. PICKUP WILL BE BETWEEN 1630 AND 1730. PT IS AWARE. WILL CONTINUE TO MONITOR.
--- NOTE | 2019-03-02 15:08 | NUR ---
HOURLY ROUNDING. PT RESTING IN BED. ABLE TO MAKE NEEDS KNOWN. RESPIRATIONS EVEN AND UNLABORED WITH NO SOB OR RESPIRATORY DISTRESS. SKIN WARM AND DRY TO TOUCH. SAFETY MEASURES IN PLACE. WILL CONTINUE TO MONITOR.
--- NOTE | 2019-03-02 16:00 | NUR ---
SW MENTIONED THAT PT HAS PERSONAL BELONGINGS IN THE [place]. ADMITTING WAS CALLED SO THAT SOMEBODY COULD BRING THE PATIENT HIS BELONGINGS. PT IS AWARE OF THIS. SAFETY MEASURES IN PLACE. WILL CONTINUE TO MONITOR
--- NOTE | 2019-03-02 16:20 | NUR ---
ADMITTING RETURNED ALL OF THE PATIENTS BELONGINGS.
--- NOTE | 2019-03-02 17:00 | NUR ---
GAVE REPORT TO [facility] N[facility]SE JULIOCESAR. VERBALIZED INFORMATION DURING REPORT. NO PROBLEMS NOTED
--- NOTE | 2019-03-02 17:25 | NUR ---
PT RESTING IN BED. ABLE TO MAKE NEEDS KNOWN. RESPIRATIONS EVEN AND UNLABORED WITH NO SOB OR RESPIRATORY DISTRESS. SKIN WARM AND DRY TO TOUCH. SAFETY MEASURES IN PLACE. WILL CONTINUE TO MONITOR. CHANGED PT INTO ORANGE WITH ORANGE BLANKETS. ALL OF THE PATIENT'S BELONGINGS WERE GATHERED. ID BAND REMOVED. INTACT IV CANNULA 22G LEFT FA IS CLEAN, DRY, AND INTACT. PT SIGNED APPROPRIATE FORMS. NO PRESCRIPTION IN CHART NOTED. FLU AND PNA VACCINE WERE REFUSED. MEDICS AT BEDSIDE. REPORT GIVEN TO MEDICS WELL DISCHARGE PAPERS. MEDICS TRANSFERRED PT ONTO [facility]. PT IS STABLE TRANSFERRING TO [facility] IN ROOM 47A.
== END 2019-03-02 17:25 | DRG 682 ==
LOC: MED 10:26 → MIC 13:55 → MTU 02-28 06:15
PROVIDERS: ADMIT Internal Medicine Pulmonary Disease; ATTEND Internal Medicine Pulmonary Disease
DX: N17.9 Acute kidney failure, unspecified (principal); J96.00 Acute respiratory failure, unspecified whether with hypoxia or hypercapnia; I50.23 Acute on chronic systolic (congestive) heart failure; L03.115 Cellulitis of right lower limb; E44.0 Moderate protein-calorie malnutrition; L03.116 Cellulitis of left lower limb; E87.2 Acidosis; I13.0 Hypertensive heart and chronic kidney disease with heart failure and stage 1 through stage 4 chronic kidney disease, or unspecified chronic kidney disease; E66.9 Obesity, unspecified; D63.1 Anemia in chronic kidney disease; N18.9 Chronic kidney disease, unspecified; K74.60 Unspecified cirrhosis of liver; D69.59 Other secondary thrombocytopenia; I48.91 Unspecified atrial fibrillation; Z59.0 Homelessness; Z87.891 Personal history of nicotine dependence; Z68.32 Body mass index [BMI] 32.0-32.9, adult
CPT/HCPCS: 36415; 71045; 76770; 80048; 80053; 83735; 83880; 84100; 84484; 85025; 87081; 93005; 96374; 97110; 97112; 97116; 97163-GP; 97530; 99285; J0282; J0696; J1160; J1650; J1940; J2060; J2270; J3490; J7030; J7060; Q0092

== ENCOUNTER 2019-07-06 12:51 | Emergency (ER) | payer MEDICARE, MEDICAID ==
[~2019-07-06] VITALS: Ht 182.9 cm; Wt 110.8 kg
[2019-07-06 12:53] VITALS: BP 149/72
--- NOTE | 2019-07-06 13:00 | NUR ---
PT AMBULATED TO ER BED 4
--- NOTE | 2019-07-06 13:01 | NUR ---
C/O LOWER BACK PAIN X 2 MONTHS. DENIES DYSURIA, TRAUMA, N/V, F/C. STATES SEVERE 10/10 PAIN WORSENED BY BENDING OVER/FORWARD. AMB STEADY GAIT TO BED 04. MED HX: LIVER PROBLEM
[2019-07-06] MEDS ORDERED: KETOROLAC 60 MG/2 ML VIAL IM ONE (13:15)
--- NOTE | 2019-07-06 14:40 | NUR ---
Patient discharged with v/s stable. Written and verbal after care instructions given and explained. Patient alert, oriented and verbalized understanding of instructions. Ambulatory with steady gait. All questions addressed prior to discharge. ID band removed. Patient advised to follow up with PMD. Rx of MOTRIN AND ROBAXIN given. Patient educated on indication of medication including possible reaction and side effects. Opportunity to ask questions provided and answered.
[2019-07-06 14:41] VITALS: BP 136/68
== END 2019-07-06 14:40 | disposition home or self-care (01) ==
LOC: MED 12:51
DX: S39.012A Strain of muscle, fascia and tendon of lower back, initial encounter (principal); I10 Essential (primary) hypertension; F17.200 Nicotine dependence, unspecified, uncomplicated; X58.XXXA Exposure to other specified factors, initial encounter; Y93.89 Activity, other specified; Y92.89 Other specified places as the place of occurrence of the external cause; Y99.8 Other external cause status
CPT/HCPCS: 72100; 96372; 99283; J1885

== ENCOUNTER 2020-12-04 16:24 | Emergency (ER) | payer MEDICARE, MEDICAID ==
[~2020-12-04] VITALS: Ht 185.4 cm; Wt 107.2 kg
[2020-12-04 16:37] VITALS: BP 150/70
--- NOTE | 2020-12-04 16:57 | NUR ---
DR. CROSS BEDSIDE EVALUATING PT
--- NOTE | 2020-12-04 17:01 | NUR ---
70 Y MALE WITH C/O OF BILATERAL LE EDEMA X4 MONTHS. PT STATED THE EDEMA STARTED ABOUT 4 MONTHS AGO AND HAS GOTTEN WORSE OVER TIME. PT IS EXPERINCING DISCOMFORT WITH WALKING DUE TO EDEMA AND TAKES MOTRIN TO PROVIDE RELIEF. PT REFUSED TO REMOVE PANTS TO ALLOW FOR ASSESSMENT, BUT NOTICEABLE EDEMA NOTED WHEN PANTS ROLLED UP. PMH: LIVER PROBLEMS NKA
--- NOTE | 2020-12-04 17:34 | NUR ---
Tra colon in [facility] - 12/04/20 at 1736 by [email or web address] KRYSTIAN PETTY ATTEMPTED TO DRAW BLOOD. PT REFUSED BLOOD WORK AND REFUSED ANY NURSING INTERVENTIONS
--- NOTE | 2020-12-04 17:36 | NUR ---
PT REFUSING ANY TYPE OF NURSING INTERVENTIONS. PT REFUSING XRAY AND LAB WORK TO BE DONE. DR. CROSS MADE AWARE
[2020-12-04] MEDS ORDERED: FURO-572 PO (17:39)
[2020-12-04 18:07] VITALS: BP 150/70
--- NOTE | 2020-12-04 18:08 | NUR ---
Patient does not wish to proceed with medical care recommended by DR. CROSS. Patient given information related to possible complications, up to and including , which could occur as a result of leaving hospital at this time. Patient verbalizes understanding of risks involved leaving against medical advice. Patient has signed AMA form. PT STILL PROVIDED WITH RX OF LASIX
== END 2020-12-04 18:08 | disposition left against medical advice (07) ==
LOC: MED 16:24
DX: I87.319 Chronic venous hypertension (idiopathic) with ulcer of unspecified lower extremity (principal); R60.0 Localized edema; Z11.3 Encounter for screening for infections with a predominantly sexual mode of transmission; I10 Essential (primary) hypertension; Z86.73 Personal history of transient ischemic attack (TIA), and cerebral infarction without residual deficits
CPT/HCPCS: 99283

== ENCOUNTER 2021-07-03 16:07 | Emergency (ER) | payer MEDICARE, MEDICAID ==
[~2021-07-03] VITALS: Ht 188 cm; Wt 98.0 kg
[~2021-07-03 16:07] MED LIST changes: +FURO-572 PO; -SULF1TAB12 PO
[2021-07-03 16:18] VITALS: BP 136/69
--- NOTE | 2021-07-03 18:50 | NUR ---
PATIENT LEFT WITHOUT BEING SEEN BY JADEN CARCAMO. NO FURTHER CARE PROVIDED FOR PATIENT.
--- NOTE | 2021-07-03 18:50 | NUR ---
CALLED 3X BY JADEN CARCAMO, NO ANSWER
== END 2021-07-03 18:50 | disposition left against medical advice (07) ==
LOC: MED 16:07
DX: Z76.0 Encounter for issue of repeat prescription (principal); Z53.21 Procedure and treatment not carried out due to patient leaving prior to being seen by health care provider